=== PATIENT | male | born 1990 | race Caucasian/White ===

== ENCOUNTER 2018-08-16 06:36 | Emergency (ER) | payer OTHER ==
[~2018-08-16] VITALS: Ht 172.7 cm; Wt 71.8 kg
[~2018-08-16 06:36] MED LIST: NO HOME MEDS
[2018-08-16 06:38] VITALS: BP 114/72
[2018-08-16] MEDS ORDERED: IBUP-1984 PO (06:50)
== END 2018-08-16 06:59 | disposition home or self-care (01) ==
LOC: ER 06:37
DX: M54.5 Low back pain (principal); F41.9 Anxiety disorder, unspecified; F12.10 Cannabis abuse, uncomplicated; F15.10 Other stimulant abuse, uncomplicated; F11.10 Opioid abuse, uncomplicated; Z56.0 Unemployment, unspecified; Z86.14 Personal history of Methicillin resistant Staphylococcus aureus infection
CPT/HCPCS: 99282

== ENCOUNTER 2019-03-13 06:56 | Emergency (ER) | payer MEDICAID ==
[~2019-03-13] VITALS: Ht 172.7 cm; Wt 63.0 kg
[2019-03-13 08:34] VITALS: BP 99/61
== END 2019-03-13 08:36 | disposition home or self-care (01) ==
LOC: ER 06:58
DX: S09.90XA Unspecified injury of head, initial encounter (principal); F41.9 Anxiety disorder, unspecified; F12.90 Cannabis use, unspecified, uncomplicated; F15.90 Other stimulant use, unspecified, uncomplicated; F11.90 Opioid use, unspecified, uncomplicated; Z86.14 Personal history of Methicillin resistant Staphylococcus aureus infection; Z90.89 Acquired absence of other organs; Z56.0 Unemployment, unspecified; W22.8XXA Striking against or struck by other objects, initial encounter; Y93.89 Activity, other specified; Y92.89 Other specified places as the place of occurrence of the external cause; Y99.8 Other external cause status
CPT/HCPCS: 70450; 99284